=== PATIENT | female | born 1965 | race American Indian/Alaskan Native ===

== ENCOUNTER 2017-01-21 12:08 | Day surgery (SDC) | payer BC ==
[2017-01-21 13:22] LABS: INR 0.99 (0.87-1.13)
[2017-01-21 13:23] LABS: Partial Thromboplastin Time 28.5 Sec. (24.2-36.6)
[2017-01-21 13:27] LABS: Hematocrit 34.8 % (30.3-42.9); Hemoglobin 11.4 gm/dl (10.1-14.3); Mean Corpuscular HGB Conc 33 % (30-34); Mean Corpuscular Hemoglobin 30 pg (28-32); Mean Corpuscular Volume 92 fl (79-97); Platelet Count 100 K/mm3 (140-440); Red Blood Count 3.77 M/mm3 (3.65-5.03); Red Cell Distribution Width 12.9 % (13.2-15.2); White Blood Count 5.3 K/mm3 (4.5-11.0)
--- NOTE | 2017-01-21 15:06 | Short Stay Summary ---
Short Stay Documentation Date of service: 01/21/17 - History Principal diagnosis: thyroid nodules H&P: obtained from office - Allergies and Medications Current Medications: Allergies gluten Allergy (Verified 01/21/17 12:31) Nausea Penicillins Allergy (Verified 07/27/15 19:04) Shortness of Breath ibuprofen [From Motrin] Adverse Reaction (Verified 07/27/15 19:04) Hives OATMEAL Allergy (Uncoded 01/21/17 12:09) Nausea Home Medications Medication Instructions Recorded Confirmed Last Taken Type Cyclobenzaprine [Flexeril 10 MG 10 mg PO PRN PRN 01/21/17 01/21/17 01/18/17 History TAB] Dexlansoprazole [Dexilant] 30 mg PO QDAY 01/21/17 01/21/17 01/20/17 History Fexofenadine/Pseudoephedrine 1 each PO QDAY 01/21/17 01/21/17 01/21/17 05:00 History [Tata-D 24 Hour Tablet] Lisinopril/Hydrochlorothiazide 1 tab PO QDAY 01/21/17 01/21/17 01/21/17 09:00 History [Lisinopril-Hctz 20-25 mg Tab] Naproxen Sodium [Aleve TAB] 2 tab PO PRN PRN 01/21/17 01/21/17 01/19/17 History - Physical exam General appearance: no acute distress HEENT: Atraumatic, EOMI, Other (prominent thyroid gland) - Brief post op/procedure progress note Date of procedure: 01/21/17 Pre-op diagnosis: thyroid nodules Post-op diagnosis: same Procedure: US thyroid biopsy Anesthesia: local Findings: see report Surgeon: MAGALYS PINEDA Estimated blood loss: none Pathology: list (FNA x 2, rotex biopsy) Specimen disposition: to lab Condition: stable - Disposition Condition at discharge: Good Disposition: DISCHARGED TO HOME OR SELFCARE Short Stay Discharge Plan Follow up with: PRIMARY CARE,MD [Primary Care Provider] - 7 Days
[2017-01-21 15:36] VITALS: BP 121/62
--- NOTE | 2017-01-21 15:47 | Ultrasound Report ---
ULTRASOUND BIOPSY THYROID HISTORY: Thyroid nodule. DESCRIPTION OF PROCEDURE: Informed consent was obtained. Sterile technique was utilized. 1% lidocaine for skin anesthesia. Using ultrasound guidance, 2 fine needle aspirations and one Rotex biopsy was obtained from a 3 cm mass in the isthmus. The samples were deemed adequate by the pathologist. No complications. IMPRESSION: Successful ultrasound-guided biopsy of the isthmus nodule.
== END 2017-01-21 15:55 | disposition home or self-care (01) ==
LOC: OPU 12:08
PROVIDERS: ATTEND Specialist
DX: E04.1 Nontoxic single thyroid nodule (principal); Z79.01 Long term (current) use of anticoagulants
CPT/HCPCS: 36415; 60100; 76942; 85027; 85610; 85730; 88172; 88173; 88305